=== PATIENT | female | born 1955 | race Hispanic/Latino ===

== ENCOUNTER → 2017-02-10 | Day surgery (SDC) | payer OTHER ==
[2017-02-07 07:25] VITALS: BMI 29.2
[~2017-02-10] MED LIST: Iodixanol 320 MG/ML 200 ML BOTTLE IV ONE; Lidocaine 2% Inj (20ml) ONE; Midazolam 2 MG/2 ML VIAL ONE; Nitroglycerin 50mg in D5W 50 MG/250 ML BOTTLE IV ONE; Sodium Chloride 0.9% 500 ML IV SCH
--- NOTE | 2017-02-11 09:42 | VAS ---
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 The patient has been walking with the use of a cane for the last 3 months, has very limited activity. PROCEDURES PERFORMED: 1. Distal abdominal aortogram with bilateral iliac runoff. 2. Selective bilateral iliofemoral angiogram with runoff, 5-Arabic right femoral arterial access, Mynx closure device for hemostasis. TECHNIQUES OF PROCEDURE: After obtaining informed consent, the patient was brought to the cardiac cath suite in post-absorptive and non-sedated state. The patient was prepped and draped in the usual sterile fashion. A 2% lidocaine was used for infiltration of anesthesia. Using modified Seldinger technique, 5-Arabic sheath was introduced into the right femoral artery. Right iliofemoral angiogram with runoff was performed. Digital subtraction angiographic views of the right SFA was obtained. Angiographic findings of the right lower extremity shows common iliac and external iliac arteries are patent. Profunda femoris patent. SFA has a mid 95% stenosis with poor flow noted below the stenotic lesion, 3-vessel runoff below the knee, left lower extremity. Subsequently over a Glidewire, Contra catheter was advanced into the abdominal aorta. Abdominal aortogram with bilateral iliac runoff was performed. Subsequently, the Contra was advanced across the aortoiliac bifurcation to the left common femoral artery. Digital subtraction angiographic views of the left SFA, left popliteal, left [id number], and left foot profile was obtained. ANGIOGRAPHIC FINDINGS OF THE LEFT LOWER EXTREMITY: Left common iliac and external iliac arteries are patent. SFA has mild disease. Profunda femoris patent. Popliteal patent. Three-vessel runoff below the knee. PT goes all the way up to the deep plantar arch. Peroneal vessel is patent. Anterior tibial artery distally is occluded at the dorsalis pedis with no flow noted in the superficial plantar arch. IMPRESSION: Severe right superficial femoral artery stenosis, diffuse superficial pedal arch disease. RECOMMENDATIONS: The patient is to be kept on aspirin 81 mg, Plavix 75 mg along with cilostazol 100 mg She is also to be put on low-dose PAXTON inhibitors and high dose statins for endothelial dysfunction and improving the collateral flow to the left superficial plantar arch. She will also be brought back for staged intervention of the right SFA in 1 to 2 weeks' time. Thank you Dr. Durán for letting me participate in the care of your patient. I will keep you updated with her future vascular care. Mike Lara MD
== END | disposition home or self-care (01) ==
LOC: C.CATHLAB 06:29
PROVIDERS: ATTEND Internal Medicine Interventional Cardiology
DX: I75.021 Atheroembolism of right lower extremity (principal); I70.201 Unspecified atherosclerosis of native arteries of extremities, right leg; Z87.891 Personal history of nicotine dependence
CPT/HCPCS: 36200; 36415; 75630; 83036; J1644; J2250; J3010; J7040; Q9966

== ENCOUNTER 2018-07-26 09:47 | Emergency (ER) | payer BC, OTHER ==
[2018-07-26 09:47] VITALS: BMI 29.2
--- NOTE | 2018-07-26 10:24 | C.PDOC ---
History Of Present Illness BL KNEE INJURY ONSET SECOND WATCH [employer]GE[employer] CO NEW ONSET L KNEE SWELL. PS ACCID FELL ONTO BOTH KNEES ONTO TILE FLOOR. PENDING R HIP REPLACEMENT, HO R KNEE ARTHRITIS "THATS USUALLY MY BAD KNEE AND IT'S ALWAYS MORE SWOLLEN". +SWELL FRONT OF L KNEE. FULL MOVEMENT WO DIFF "BUT FEELS TIGHT". DENIES ANTICOAG USE. NO OTHER ASSOC SX. CHRONIC CANE USE EXAM NAD EXT L KNEE +MOD EFFUSION ANTERIOR. FLEX >90 WO DIFF. NO DEFORM, SUBLUX. L HIP AROM WO DIFF SKIN INTACT REMAINDER NEG Time Seen by Provider: 07/26/18 10:20 Chief Complaint (Nursing): Lower Extremity Problem/Injury History Per: Patient History/Exam Limitations: no limitations Onset/Duration Of Symptoms: Days Current Symptoms Are (Timing): Still Present Severity: Moderate Past Medical History Reviewed: Historical Data, Nursing Documentation, Vital Signs Vital Signs: Last Vital Signs Temp 98.5 F 07/26/18 09:56 Pulse 85 07/26/18 09:56 Resp 17 07/26/18 09:56 BP 161/96 H 07/26/18 09:56 Pulse Ox 99 07/26/18 09:56 Primary Care Provider: Luis Contreras - Medical History PMH: Gall Bladder Disease Denies: Chronic Kidney Disease Surgical History: Cholecystectomy Family History: States: No Known Family Hx - Social History Hx Alcohol Use: Yes Hx Substance Use: No - Immunization History Hx Tetanus Toxoid Vaccination: No Hx Influenza Vaccination: No Hx Pneumococcal Vaccination: No Review Of Systems Except As Marked, All Systems Reviewed And Found Negative. Musculoskeletal: Positive for: Other (knee pain and swelling) Neurological: Negative for: Weakness, Numbness Physical Exam - Physical Exam Appears: No Acute Distress Skin: Normal Color, Warm, Dry, Other (skin intact in bilateral knees) Head: Atraumatic, Normacephalic Eye(s): bilateral: Normal Inspection Respiratory: Other (NARD) Extremity: Normal ROM ( flexion > 90 w/o difficulty in left knee, AROM w/o difficulty in left hip), No Deformity, Other (moderate effusion to anterior left knee, no subluxation) Neurological/Psych: Oriented x3, Normal Speech ED Course And Treatment O2 Sat by Pulse Oximetry: 99 (RA) Pulse Ox Interpretation: Normal - Other Rad L KNEE X-Ray: Interpreted by Me (NEG) Reevaluation Time: 10:50 Reassessment Condition: Unchanged (PT DOES NOT PO PAIN MEDS @ THIS TIME. WILL CONTINUE CANE, DOES NOT WANT KNEE IMMOBILIZER) Medical Decision Making Medical Decision Making: Plan: --X-Ray-Left Knee Disposition Counseled Patient/Family Regarding: Studies Performed, Diagnosis, Need For Followup - Disposition Referrals: YOUR,PMD [Other] Disposition: HOME/ ROUTINE Disposition Time: 10:51 Condition: GOOD Instructions: Knee Sprain (DC) Forms: [employer] (Urdu) - Clinical Impression Clinical Impression: Knee contusion, Knee sprain - Scribe Statement The provider has reviewed the documentation as recorded by the Jose Chua Provider Attestation: All medical record entries made by the Daquanibe were at my direction and personally dictated by me. I have reviewed the chart and agree that the record accurately reflects my personal performance of the history, physical exam, medical decision making, and the department course for this patient. I have also personally directed, reviewed, and agree with the discharge instructions and disposition.
[2018-07-26 10:25] VITALS: BP 161/96; PULSE 85; RESP 17; TEMP 98.5; O2SAT 99
[2018-07-26] MEDS ORDERED: Lidocaine 5% Patch TD ONE ×2 (10:51→10:57)
--- NOTE | 2018-07-26 12:25 | RAD ---
PROCEDURE: Left Knee Radiographs. Three views. HISTORY: TRAUMA COMPARISON: None available. FINDINGS: BONES: No acute displaced fracture. Subtle 3 mm patchy hypodensity within the posterior aspect of the patella, nonspecific. JOINTS: No dislocation. JOINT EFFUSION: No significant joint effusion. OTHER FINDINGS: None. IMPRESSION: No acute displaced fracture, dislocation, or significant joint effusion identified.If symptoms persist, or if there is continued clinical concern, x-ray follow-up in 7-10 days should be considered. Subtle 3 mm patchy hypodensity within the posterior aspect of the patella, nonspecific.
== END 2018-07-26 11:00 | disposition home or self-care (01) ==
LOC: C.ER 09:47
DX: S83.92XA Sprain of unspecified site of left knee, initial encounter (principal); S80.02XA Contusion of left knee, initial encounter; W18.30XA Fall on same level, unspecified, initial encounter